=== PATIENT | female | born 1940 | race Two or more races ===

== ENCOUNTER 2022-08-03 10:25 | Inpatient (IN) | payer OTHER ==
[~2022-08-03] VITALS: Ht 162.6 cm; Wt 69.9 kg
[~2022-08-03 10:25] MED LIST: CARAFATE SU1 G/10 ML PO; FAMOTIDINE20 MG PO; PEPCID20 MG PO; POLY119PG PO; SUCRALFATE1 GM/10 ML PO
[2022-08-03] MEDS ORDERED: CELEXA40 MG PO (10:52)
[2022-08-03] MEDS ORDERED: TROPOL PO (10:54)
[2022-08-03] MEDS ORDERED: HYZAAR 100-12.1 EACH PO (10:54)
[2022-08-03] MEDS ORDERED: PLAVIX75 MG PO (10:56)
[2022-08-03] MEDS ORDERED: CRESTOR20 MG PO (10:57)
[2022-08-03] MEDS ORDERED: GLYCOPYRROLATE1 MG PO (10:57)
[2022-08-03] MEDS ORDERED: ADULT LOW DOSE81 M1 PO (10:57)
[2022-08-03] MEDS ORDERED: NEURONTIN600 M1 PO (10:58)
[2022-08-03] MEDS ORDERED: CELEXA10 MG PO (10:58)
[2022-08-04] MEDS ORDERED: SUCRALFATE1 GM (16:48)
[2022-08-04] MEDS ORDERED: METOPROLOL SUC100 MG (16:48)
[2022-08-04] MEDS ORDERED: SYNTHROID88 MCG (16:48)
[2022-08-04] MEDS ORDERED: OMEGA-3 ACID ETH1 GM (16:49)
[2022-08-04] MEDS ORDERED: ESOMEPRAZOLE MA40 MG (16:49)
== END 2022-08-12 22:52 | disposition designated cancer center or children's hospital (05) | DRG 395 ==
LOC: ER 10:25 → SEC-K 15:44 → SURG 15:44
PROVIDERS: ADMIT Internal Medicine; ATTEND Internal Medicine
PROC: BW21YZZ Computerized Tomography (CT Scan) of Abdomen and Pelvis using Other Contrast (ICD-10-PCS; principal; 2022-08-03)
PROC: 02HV33Z Insertion of Infusion Device into Superior Vena Cava, Percutaneous Approach (ICD-10-PCS; 2022-08-04)
PROC: 3E0436Z Introduction of Nutritional Substance into Central Vein, Percutaneous Approach (ICD-10-PCS; 2022-08-04)
PROC: B246ZZZ Ultrasonography of Right and Left Heart (ICD-10-PCS; 2022-08-07)
DX: K55.1 Chronic vascular disorders of intestine (principal); K29.70 Gastritis, unspecified, without bleeding; I25.10 Atherosclerotic heart disease of native coronary artery without angina pectoris; I11.9 Hypertensive heart disease without heart failure; Z20.822 Contact with and (suspected) exposure to COVID-19; Z95.5 Presence of coronary angioplasty implant and graft